=== PATIENT | male | born 1940 | race Caucasian/White ===

== ENCOUNTER 2020-10-30 09:19 | Observation (INO) | payer MEDICARE, OTHER ==
--- NOTE | 2020-10-30 09:52 | EDM.PDOC ---
ED HPI GENERAL MEDICAL PROBLEM - General Stated Complaint: INJURED AT HOME Time Seen by Provider: 10/30/20 09:25 Source of Information: Reports: EMS - History of Present Illness INITIAL COMMENTS - FREE TEXT/NARRATIVE: Pt fell at home and was found by a family member. He lives alone and is on pallative cares for end stage cancer. He also has COPD. EMS reports vitals were hard to obtain on site, but sats were in the 70's. He C/O back pain. Denies any head or neck injury. Past Medical History HEENT History: Reports: None Cardiovascular History: Reports: None Respiratory History: Reports: None Gastrointestinal History: Reports: None Genitourinary History: Reports: None Musculoskeletal History: Reports: Osteoarthritis Neurological History: Reports: None Other Neuro History: no sensation LE symptoms Endocrine/Metabolic History: Reports: None Oncologic (Cancer) History: Reports: None - Past Surgical History Other Respiratory Surgeries/Procedures: smokes 4-5 cigarrettes per day, "more if i have beer" Other Musculoskeletal Surgeries/Procedures:: OA knee. chronic back pain with past medical history review today/ via [facility] chart ED ROS GENERAL - Review of Systems Review Of Systems: Comprehensive ROS is negative, except as noted in HPI. Constitutional: Reports: Weakness, Decreased Appetite, Weight Loss Respiratory: Reports: Shortness of Breath, Other Musculoskeletal: Reports: Back Pain ED EXAM, GENERAL - Physical Exam Exam: See Below Exam Limited By: Other (He is extremely weak but does answer questions.) General Appearance: Other (extremely thin individual. ) Respiratory/Chest: Decreased Breath Sounds (Slightly Irregular rate.) Extremities: Other (skin tear to upper Rt arm jovan 3 cm in size.) Course - Orders/Labs/Meds Orders: Active Orders 24 hr Category Date Time Status Patient Status [ADT] Routine ADT 10/30/20 15:49 Active Oxygen Therapy [RC] PRN Care 10/30/20 15:49 Active RT Aerosol Therapy [RC] ASDIRECTED Care 10/30/20 15:49 Active Vital Signs [RC] Q4H Care 10/30/20 15:49 Active Albuterol/Ipratropium [DuoNeb 3.0-0.5 MG/3 ML] Med 10/30/20 15:48 Active 3 ml NEB Q4H PRN HYDROmorphone [Dilaudid] Med 10/30/20 15:47 Active 0.5 mg SUBCUT Q4H PRN Medication Orders Albuterol/Ipratropium (Albuterol/Ipratropium 3.0-0.5 Mg/3 Ml Neb Soln) 3 ml NEB Q4H PRN PRN Reason: Shortness of Breath Hydromorphone HCl (Hydromorphone 4 Mg/Ml Syringe) 0.5 mg SUBCUT Q4H PRN PRN Reason: Pain (moderate 4-6) Stop: 11/02/20 23:59 Meds: Medications Generic Name Dose Route Start Last Admin Trade Name Freq PRN Reason Stop Dose Admin Albuterol/Ipratropium 3 ml 10/30/20 15:48 Albuterol/Ipratropium 3.0-0.5 Mg/3 Ml Neb Soln NEB Q4H PRN Shortness of Breath Hydromorphone HCl 0.5 mg 10/30/20 15:47 Hydromorphone 4 Mg/Ml Syringe SUBCUT 11/02/20 23:59 Q4H PRN Pain (moderate 4-6) Discontinued Medications Generic Name Dose Route Start Last Admin Trade Name Freq PRN Reason Stop Dose Admin Albuterol/Ipratropium Confirm 10/30/20 14:08 Albuterol/Ipratropium 3.0-0.5 Mg/3 Ml Neb Soln Administered 10/30/20 14:09 Dose 3 ml .ROUTE .STK-MED ONE Hydromorphone HCl Confirm 10/30/20 11:14 Hydromorphone 2 Mg/Ml Sdv Administered 10/30/20 11:15 Dose 2 mg .ROUTE .STK-MED ONE - Re-Assessments/Exams Free Text/Narrative Re-Assessment/Exam: 10/30/20 09:57 Attempt at starting an IV were unsuccessful. We were then contacted by home health nursing who informed us he [facility] For [facility] stage [facility]. We are to do comfort measures only. He is DNR - DNI. Morphine 4 mg was given IM. He will be monitored as an ER hold for now. Continue O2 and pain control. He has family here who agree with the Tx measures discussed today. Departure - Departure Time of Disposition: 15:45 Disposition: DC/Tfer to Hospice-Med Fac 51 Condition: Poor Clinical Impression: End of life care - Discharge Information *PRESCRIPTION DRUG MONITORING PROGRAM REVIEWED*: No *COPY OF PRESCRIPTION DRUG MONITORING REPORT IN PATIENT JUVENTINO: No Referrals: PCP,None [Primary Care Provider] - - My Orders Last 24 Hours: My Active Orders 10/30/20 15:47 HYDROmorphone [Dilaudid] 0.5 mg SUBCUT Q4H PRN 10/30/20 15:48 Albuterol/Ipratropium [DuoNeb 3.0-0.5 MG/3 ML] 3 ml NEB Q4H PRN 10/30/20 15:49 RT Aerosol Therapy [RC] ASDIRECTED 10/30/20 15:49 Patient Status [ADT] Routine Oxygen Therapy [RC] PRN Vital Signs [RC] Q4H - Assessment/Plan Last 24 Hours: My Active Orders 10/30/20 15:47 HYDROmorphone [Dilaudid] 0.5 mg SUBCUT Q4H PRN 10/30/20 15:48 Albuterol/Ipratropium [DuoNeb 3.0-0.5 MG/3 ML] 3 ml NEB Q4H PRN 10/30/20 15:49 RT Aerosol Therapy [RC] ASDIRECTED 10/30/20 15:49 Patient Status [ADT] Routine Oxygen Therapy [RC] PRN Vital Signs [RC] Q4H
[2020-10-30] MEDS ORDERED: HYDROmorphone 2 MG/ML SDV ONE ×2 (11:14→22:07)
[2020-10-30] MEDS: HYDROmorphone 4 MG/ML Syringe SUBCUT PRN ×2 (11:15→22:27)
[2020-10-30] MEDS ORDERED: Albuterol/Ipratropium 3.0-0.5 MG/3 ML Neb Soln ONE (14:08)
[2020-10-30] MEDS ORDERED: Albuterol/Ipratropium 3.0-0.5 MG/3 ML Neb Soln NEB PRN (15:48)
--- NOTE | 2020-10-30 20:13 | ADMIT ---
HISTORY OF PRESENT ILLNESS: This patient came into the emergency room by ambulance after falling at home. He was not alert when found and his O2 sats were quite low. The patient was brought in with oxygen on and his only complaint has been back pain. The patient is end- stage cancer patient. He has pancreatic cancer that has metastasized. His sister tells me he was told he has it from his throat to his rectum. The patient has been doctoring through the [place] and is basically on hospice type status with comfort cares. There are instructions for no IV fluids. The patient is DNR/DNI and his sister tells me that is how it has been for a while. He has recently been failing more. A few days ago, he was still able to get up and go outside to smoke, which he does on a regular basis. This has been most of his activity lately. Upon arrival to the ER, the patient was barely responsive to any questions. He was trying to talk, but was not able to get much out for words. He was able to tell me that his back hurt. During the course of the ER, we found a skin tear on the patient's right upper arm, which we put a dressing on. Oxygen was applied and it seemed like he became more alert. He was continuing to complain of back pain. We therefore treated him with initially morphine since he had this at home, but then gave him a dose of Dilaudid. I did talk with the patient's home health nurse who agreed that comfort cares only is what is requested. We then observed the patient as an ER hold for a few hours expecting him to actually pass away, but he seems like he is becoming more alert, at which time we admitted the patient as an observation patient and expecting in a couple of days, he will be transferred to either respite care or some form of comfort care status. The patient's back pain has been controlled with Dilaudid getting 0.5 mg. He has had 2 doses of this. We will continue to do this as well as offer DuoNebs. He did request a breathing treatment x1 while an ER patient. The patient is very thin and has quite poor personal hygiene. Several family members have been visiting him today since earlier on it appeared that he would not survive the day, but now he seems to be doing slightly better. PHYSICAL EXAMINATION: LUNGS: Has reduced air exchange. CARDIAC: Heart sounds reveal a normal sinus rhythm, slightly irregular. CRS/MODL /[id number]
--- NOTE | 2020-10-31 14:55 | DISCH ---
This patient was admitted for end of life care through the emergency room yesterday. He has end-stage cancer and had been slowly, but steadily failing. He [facility]. He was monitored here and given pain medications as needed. The patient at 2310 quietly. JAROCHO/DANIELE /[id number]
== END 2020-10-30 23:10 | disposition expired ==
LOC: LB.ED 09:19 → LB.MS 15:45 → UNDOADMOB 15:45 → LB.MS 15:49 → UNDODISOB 23:10
PROVIDERS: ADMIT Physician Assistant; ATTEND Physician Assistant
DX: M54.9 Dorsalgia, unspecified (principal); C25.9 Malignant neoplasm of pancreas, unspecified; S41.111A Laceration without foreign body of right upper arm, initial encounter; J44.9 Chronic obstructive pulmonary disease, unspecified; F17.210 Nicotine dependence, cigarettes, uncomplicated; W19.XXXA Unspecified fall, initial encounter
CPT/HCPCS: 96372; 99284; A0425; A0429; G0378; J1170; J7620-GY